=== PATIENT | female | born 1980 | race Caucasian/White ===

== ENCOUNTER 2016-08-24 13:27 | Emergency (ER) | payer MEDICAID ==
[2016-08-24] MEDS ORDERED: ONDANSETRON DISINTEGRATING 4 MG TAB PO ONE (13:49)
[2016-08-24] MEDS ORDERED: ONDANSETRON 4 MG/2 ML VIAL IVP ONE (14:13)
[2016-08-24 14:36] LABS: ADD DIFF? YES; ADD MORPH? NO; ADD SCAN? NO; ATYPICAL LYMPHOCYTE FLAG 0 (0-99); FRAGMENT RBC FLAG 0 (0-99); HEMATOCRIT 47.9 % (38.0-47.0); HEMOGLOBIN 16.5 g/dL (12.6-16.3); LEFT SHIFT FLG 0 (0-99); LIPEMIA HEMOLYSIS FLAG 90 (0-99); MEAN CELL HEMOGLOBIN 30.4 pg (27.9-34.1); MEAN CELL HEMOGLOBIN CONCENTR. 34.4 g/dL (32.4-36.7); MEAN CELL VOLUME 88.2 fL (81.5-99.8); MEAN PLATELET VOLUME 9.9 fL (8.7-11.7); PLATELET CLUMPS FLAG 20 (0-99); PLATELET COUNT 357 10^3/uL (150-400); RED BLOOD CELL COUNT 5.43 10^6/uL (4.18-5.33); RED CELL DISTRIBUTION WIDTH 13.1 % (11.5-15.2)
[2016-08-24] MEDS ORDERED: LORazepam 2 MG/ML INJ IVP ONE (14:47)
[2016-08-24 14:54] LABS: ANION GAP 21 mEq/L (8-16); CALCIUM 9.7 mg/dL (8.5-10.4); CARBON DIOXIDE 17 mEq/l (22-31); CHLORIDE 106 mEq/L (97-110); GLOMERULAR FILTRATION RATE > 60; GLUCOSE 114 mg/dL (70-100); POTASSIUM 4.3 mEq/L (3.5-5.2); SODIUM 144 mEq/L (134-144)
[2016-08-24 15:13] LABS: ECHINOCYTES 1+; GIANT PLATELETS PRESENT; PLATELET ESTIMATE ADEQUATE (ADEQ); SCHISTOCYTES 1+
[2016-08-24 15:14] LABS: BILIRUBIN,TOTAL 1.3 mg/dL (0.1-1.4); BILIRUBIN-CONJUGATED 0.5 mg/dL (0.0-0.5); BILIRUBIN-UNCONJUGATED 0.8 mg/dL (0.0-1.1); TOTAL PROTEIN 8.5 g/dL (6.3-8.2)
--- NOTE | 2016-08-24 15:16 | EDPHY ---
H & P Stated Complaint: N/V/D Time Seen by Provider: 08/24/16 14:38 HPI/ROS: CHIEF COMPLAINT: Nausea, vomiting HISTORY OF PRESENT ILLNESS: 36-year-old female presents to the emergency department reporting that this morning she developed nausea and vomiting with multiple bouts of emesis. Initially had clear emesis, then developed a small amount of bile, now dark emesis, questionable coffee-grounds. No true diarrhea although the patient has had some soft stools. No fevers, no abdominal pain, chest pain, urinary complaints, headache. Patient reports that she has had history of similar nausea vomiting several years ago that had no specific cause. Patient complains of feeling cold. She is hyperventilating and tremorous on arrival. Some lightheadedness when standing. No fainting. No chest pain. No palpitations. REVIEW OF SYSTEMS: Aside from elements discussed in the HPI, a comprehensive 10-point review of systems was reviewed and is negative. PAST MEDICAL HISTORY: Knee pain SOCIAL HISTORY: Nonsmoker, no alcohol. Daily marijuana use. VITAL SIGNS Reviewed by me. GENERAL: Well-developed, well-nourished, hyperventilating. Bucket with dark emesis material at bedside. HEENT: Atraumatic. Eyes: No icterus, no injection. Mouth: Slightly dry mucous membranes. No erythema or lesions. Neck: supple with no adenopathy. LUNGS: Clear to auscultation bilaterally, no wheezes, rhonchi or rales. CARDIAC: Regular rate and rhythm, no rubs, murmurs or gallops. ABDOMEN: Soft, nontender, nondistended, bowel sounds normal. BACK: No CVA tenderness. EXTREMITIES: No trauma. No edema. Range of motion is normal throughout. NEURO: Alert and oriented, grossly nonfocal. SKIN: Warm and dry, no rash. PSYCHIATRIC: Normal mentation, anxious. No agitation. Portions of this note were transcribed by a medical administrative specialist. I personally performed a history, physical exam, medical decision making, and confirmed accuracy of information of the transcribed note. - Personal History LMP (Females 10-55): 22-28 Days Ago Current Tetanus/Diphtheria Vaccine: Yes - Medical/Surgical History Hx Asthma: No Hx Chronic Respiratory Disease: No Hx Diabetes: No Hx Cardiac Disease: No Hx Renal Disease: No Hx Cirrhosis: No Hx Alcoholism: No Hx HIV/AIDS: No Hx Splenectomy or Spleen Trauma: No Other PMH: DENIES - Social History Smoking Status: Never smoked Constitutional: Initial Vital Signs Temperature (C) 36.3 C 08/24/16 13:32 Heart Rate 72 08/24/16 13:32 Respiratory Rate 28 H 08/24/16 13:32 Blood Pressure 145/106 H 08/24/16 13:32 O2 Sat (%) 100 08/24/16 13:32 O2 Delivery Mode Room Air Allergies/Adverse Reactions: ANY CYCLIN ABX Allergy (Uncoded 08/24/16 13:32) Home Medications: Medication Instructions Recorded Ondansetron Odt [Zofran Odt 4 mg 4 mg PO Q6 PRN #8 tab 08/24/16 (RX)] Promethazine HCl [Phenergan 25mg 12.5 - 25 mg PO Q8 PRN #14 tab 08/24/16 (*)] oxyCODONE/APAP 5/325 [Percocet 1 - 2 tab PO QID PRN #10 tab 08/24/16 5/325 (*)] Medical Decision Making - Diagnostics Imaging: Study: CT of the abdomen/pelvis. Results: Colitis of the cecum, ascending colon, and transverse colon. Differential would include infectious and inflammatory causes not excluding Crohn's or ulcerative colitis. Ischemia would be very uncommon in a patient this age with no significant vasculature abnormality. The study was read by the radiologist, Dr. Gupta. I viewed the images myself on the PACS system. ED Course/Re-evaluation: IV was established. Patient received a L normal saline and Zofran 4 mg. She had little relief in her nausea. She received Ativan 0.[address] ordered. Nausea improved with ativan. Patient taking ice chips on return from CT. CT demonstrates colitis. Received dilaudid for crampy pain. Patient reexamined: abdomen remains very soft, no voluntary guarding, no rebound , no tenderness. Re assessed after additional fluids and phenergan: up and about in room, taking ice chips, water, without vomiting or diarrhea. Nausea resolved. Pain controlled. Abdomen remains benign on reexamination. Discussed admission vs discharge to home with clear fluids, pain meds, anti- emetics. Patient wishes to be discharged with symptomatic treatment. I think this is a safe plan. See [facility]. Stressed importance of return if fevers, bloody emesis or bloody diarrhea, development of abdominal pain, or other concerns. Differential Diagnosis: After obtaining the patients history and performing an examination, differential diagnosis considered included but was not limited to appendicitis, cholecystitis, gastritis, pancreatitis, gastroenteritis, colitis, cyclic vomiting,marijuana hyperemesis syndrome, urinary tract infections and other causes. - Data Points Laboratory Results: Laboratory Results 08/24/16 14:20 08/24/16 14:20 Medications Given: Discontinued Medications Hydromorphone HCl (Dilaudid) 1 mg IVP EDNOW ONE Stop: 08/24/16 17:30 Last Admin: 08/24/16 17:51 Dose: 1 mg Dextrose/Sodium Chloride (D5w Ns) 1,000 mls @ 0 mls/hr IV CONT KANG PRN Reason: Wide Open Stop: 02/20/17 17:29 Last Admin: 08/24/16 17:35 Dose: 1,000 mls Lorazepam (Ativan Injection) 0.5 mg IVP EDNOW ONE Stop: 08/24/16 14:48 Last Admin: 08/24/16 14:56 Dose: 0.5 mg Ondansetron HCl (Zofran Odt) 4 mg PO EDNOW ONE Stop: 08/24/16 13:50 Last Admin: 08/24/16 13:55 Dose: 4 mg Ondansetron HCl (Zofran) 4 mg IVP EDNOW ONE Stop: 08/24/16 14:14 Last Admin: 08/24/16 14:27 Dose: 4 mg Oxycodone/Acetaminophen (Percocet 5/325mg Prepack#4) 1 btl TAKEHOME EDNOW ONE Stop: 08/24/16 18:57 Last Admin: 08/24/16 18:57 Dose: 1 btl Promethazine HCl (Phenergan Injection) 25 mg IVP EDNOW ONE Stop: 08/24/16 17:30 Last Admin: 08/24/16 17:52 Dose: 25 mg Departure - Departure Disposition: Home, Routine, Self-Care Clinical Impression: Non-specific colitis, Anxiety, Hyperventilation Vomiting Qualifiers: Qualifier Code: (R11.2) Nausea with vomiting, unspecified Condition: Good Instructions: Acute Nausea and Vomiting (ED) Additional Instructions: Take Zofran as prescribed for nausea. Take phenergan as prescribed for persistent nausea and vomiting. OK to take hydrocodone as needed for severe pain. Call Dr. Soliz [facility], tomorrow to set up a follow up appointment. Return to the emergency department for intractable vomiting, bloody vomit, serious diarrhea, or other serious worsening of condition. Referrals: Ivan Soliz MD [Medical Doctor] - As per Instructions Prescriptions: oxyCODONE/APAP 5/325 [Percocet 5/325 (*)] 1 - 2 tab PO QID PRN #10 tab PRN Reason: Pain Promethazine HCl [Phenergan 25mg (*)] 12.5 - 25 mg PO Q8 PRN #14 tab PRN Reason: vomiting Ondansetron Odt [Zofran Odt 4 mg (RX)] 4 mg PO Q6 PRN #8 tab PRN Reason: Nausea Report Scribed for: Dilia Haddad Report Scribed by: Yaakov Jj Date of Report: 08/24/16 Time of Report: 15:41
[2016-08-24] MEDS ORDERED: IOPAMIDOL (ISOVUE-300) 50 ML VIAL IV ONE (16:24)
[2016-08-24] MEDS ORDERED: HYDROmorphONE/DILAUDID 1 MG/ML SYR IVP ONE (17:29)
[2016-08-24] MEDS ORDERED: PROMETHAZINE HCL 25 MG/ML VIAL IVP ONE (17:29)
--- NOTE | 2016-08-24 17:29 | CT ---
CT Scan of the Abdomen and Pelvis (With Contrast) Clinical Indications: Abdominal pain and elevated white count Technique: Dilute contrast was given orally prior to scanning. 90 mL of Isovue-300 were given intra venously by machine power injection. Multidetector helical CT imaging was performed from the diaphra gm to the symphysis pubis. Dose reduction techniques were utilized. Findings: Abdomen: The lung bases are clear, and there is no significant pleural fluid. The liver is normal. The biliary ducts and gallbladder are unremarkable. The pancreas and spleen are normal. The adrena l glands and kidneys are normal. No adenopathy and no masses are found. No aneurysm of the abdomina l aorta. Pelvis: The urinary bladder is unremarkable. No free fluid in the pelvis. No masses are identified. Bowel loops are normal. The appendix is visualized and noninflamed. Small amount of contrast versus appendicoliths are present in the lumen of the appendix. There is inflammatory change of the cecum, ascending colon, transverse colon, consistent with colitis. There is submucosal fat which is a nonspe cific finding. This can be seen in patients with ulcerative colitis or Crohn's, but is also noted to be normal in obese patients. The splenic flexure, descending colon, sigmoid and rectum are unremarkab le except for scattered diverticula. Ovarian cyst is noted in the right adnexa. Impression: Colitis of the cecum, ascending colon, and transverse colon. Differential would include infectious and inflammatory causes not excluding Crohn's or ulcerative colitis. Ischemia would be very uncommon in a patient this age with no significant vasculature abnormality. Critical results were discussed by Dr. Gupta with Dr. Haddad on August 24, 2016 at 1702 hours.
[2016-08-24] MEDS ORDERED: D5W NS 1,000 ML IV SCH (17:30)
[2016-08-24 18:12] VITALS: PULSE 97; RESP 16; O2SAT 98
[2016-08-24 18:13] VITALS: BP 107/73; TEMP 98.8
[2016-08-24] MEDS ORDERED: OXYCODONE/APAP 5/325MG PREPACK#4 BTL TAKEHOME ONE ×2 (18:55→18:56)
== END 2016-08-24 19:02 | disposition home or self-care (01) ==
DX: R11.2 Nausea with vomiting, unspecified (principal); K52.9 Noninfective gastroenteritis and colitis, unspecified; F41.9 Anxiety disorder, unspecified; R06.4 Hyperventilation
CPT/HCPCS: 96374; J1170; J2405; J2550; Q9967